=== PATIENT | female | born 1990 | race Caucasian/White ===

== ENCOUNTER 2022-02-26 12:07 | Emergency (ER) | payer MEDICAID ==
[~2022-02-26] VITALS: Ht 162.6 cm; Wt 55.0 kg
[2022-02-26 12:27] VITALS: BP 116/78
[2022-02-26] MEDS ORDERED: VISCOUS LIDOCAINE 2% 15 ML UDC PO STA (13:18)
[2022-02-26] MEDS ORDERED: MAGNESIUM/ALUMINUM HYDROXIDE/SIMETHICONE 30ML UDC PO STA (13:18)
[2022-02-26] MEDS ORDERED: ONDANSETRON HCL 4MG/2ML INJ IV STA (13:18)
[2022-02-26] MEDS ORDERED: SODIUM CHLORIDE 0.9% 1,000 ML IV ONE (13:30)
[2022-02-26] MEDS ORDERED: FAMOTIDINE 20MG TABLET PO ONE (13:30)
[2022-02-26] MEDS ORDERED: HALOPERIDOL LACTATE 5MG/ML VIAL IM ONE (14:30)
[2022-02-26] MEDS ORDERED: METOCLOPRAMIDE HCL 10MG/2ML VIAL IV ONE (14:30)
== END 2022-02-26 14:50 | disposition home or self-care (01) ==
LOC: ER 12:19
DX: U07.1 COVID-19 (principal); R10.84 Generalized abdominal pain
CPT/HCPCS: 87426; 99283; C9803; J7030